=== PATIENT | male | born 1945 | race Caucasian/White ===

== ENCOUNTER 2017-05-16 13:13 | Inpatient (IN) ==
[2017-05-16] MEDS ORDERED: 0.9 % Sodium Chloride 1,000 ML IVC ONE ×3 (13:32→16:38)
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
[2017-05-16 14:00] LABS: Basophils % 0.1 %; Eosinophils % 0.1 %; Hematocrit 42.1 % (37.5-50.1); Hemoglobin 14.7 g/dL (12.9-16.9); Immature Granulocytes % 0.3 % (0-4); Lymphocytes # 0.6 K/mcL (0.6-4.6); Lymphocytes % 5.2 %; Mean Corpuscular HGB Conc 34.9 g/dL (31.6-35.5); Mean Corpuscular Hemoglobin 33.6 pg (28.0-33.3); Mean Corpuscular Volume 96.1 fL (83.0-100.0); Mean Platelet Volume 9.5 fL (9.4-12.4); Monocytes # 0.6 K/mcL (0.0-1.3); Neutrophils # 9.8 K/mcL (1.6-8.9); Nucleated Red Blood Cells 0.3 /100 WBC (0); Platelet Count 239 K/mcL (140-400); Red Blood Count 4.38 M/mcL (4.19-5.50); Red Cell Distribution Width 13.3 % (11.5-14.5); Segmented Neutrophils % 89.3 %
[2017-05-16 14:14] LABS: Prothrombin Time 21.4 Seconds (9.4-12.1)
[2017-05-16 14:17] LABS: Albumin 3.1 g/dL (3.5-5.0); Albumin/Globulin Ratio 0.9 (1.1-2.2); Bilirubin,Total 0.7 mg/dL (0.2-1.2); Calcium 9.1 mg/dL (8.6-10.8); Globulin 3.4 g/dL (2.4-3.5); Potassium 4.7 mEq/L (3.5-4.5); Total Protein 6.5 g/dL (6.0-8.3)
[2017-05-16] MEDS ORDERED: 0.9 % Sodium Chloride 1,000 ML IVC SCH ×3 (14:30→17:45)
[2017-05-16 14:55] LABS: Platelet Estimate Normal (Normal)
[2017-05-16] MEDS ORDERED: *HR* Nalbuphine 20 MG/ML AMPUL IVP STA (15:06)
[2017-05-16] MEDS ORDERED: Ondansetron 4 MG/2 ML VIAL IVP ONE (15:06)
[2017-05-16] MEDS ORDERED: MetroNIDAZOLE 500 MG/100 ML 500 MG/100 ML BAG IVPB ONE (15:06)
--- NOTE | 2017-05-16 16:29 | Electrocardiograph Report ---
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
[2017-05-16] MEDS ORDERED: *HR* HYDROmorphone (PF) 1 MG/ML SYRINGE IVP PRN (16:38)
[2017-05-16] MEDS ORDERED: Naloxone 0.4 MG/ML INJ IVP PRN (16:38)
[2017-05-16] MEDS ORDERED: Ondansetron 4 MG/2 ML VIAL IVP PRN (16:38)
[2017-05-16] MEDS: 0.9 % Sodium Chloride 1,000 ML IVC SCH (17:12)
[2017-05-16] MEDS ORDERED: Pantoprazole 40 MG in 0.9 % Sodium Chloride Mini Bag 100 ML IVPB ONE (23:54)
[2017-05-17] MEDS ORDERED: Pantoprazole 40 MG VIAL IVP ONE (00:02)
[2017-05-17] MEDS: *HR* HYDROmorphone (PF) 1 MG/ML SYRINGE IVP PRN ×3 (00:17→18:59)
[2017-05-17 06:09] LABS: Basophils % 0.3 %; Eosinophils % 0.1 %; Hemoglobin 12.5 g/dL (12.9-16.9); Immature Granulocytes % 0.3 % (0-4); Lymphocytes # 0.5 K/mcL (0.6-4.6); Mean Corpuscular HGB Conc 34.7 g/dL (31.6-35.5); Mean Corpuscular Hemoglobin 33.1 pg (28.0-33.3); Mean Corpuscular Volume 95.2 fL (83.0-100.0); Mean Platelet Volume 9.3 fL (9.4-12.4); Monocytes # 0.7 K/mcL (0.0-1.3); Monocytes % 9.2 %; Neutrophils # 5.8 K/mcL (1.6-8.9); Platelet Count 185 K/mcL (140-400); Red Blood Count 3.78 M/mcL (4.19-5.50); Red Cell Distribution Width 13.6 % (11.5-14.5); Segmented Neutrophils % 83.1 %
[2017-05-17 06:18] LABS: INR 1.8; Prothrombin Time 19.8 Seconds (9.4-12.1)
[2017-05-17 06:20] LABS: Activated Partial Thrombo Time 45.1 Seconds (26.0-36.0)
[2017-05-17 06:35] LABS: Calcium 8.3 mg/dL (8.6-10.8); Potassium 4.2 mEq/L (3.5-4.5)
[2017-05-17 06:57] LABS: Platelet Estimate Normal (Normal)
[2017-05-17] MEDS: Pantoprazole 40 MG VIAL IVP SCH (10:59)
[2017-05-17] MEDS ORDERED: Ondansetron 4 MG/2 ML VIAL IVP PRN (11:46)
--- NOTE | 2017-05-17 11:50 | Internal Med History&Physical ---
Date of Encounter: 05/17/17 Time of Encounter: 11:20 Assessment and Plan (1) Upper GI bleed Current visit: Yes Status: Acute NG tube to suction has been inserted. IV PPI has been ordered. Will hold aspirin and Pradaxa for now. (2) Anemia Current visit: Yes Status: Acute Hemoglobin was 12.5 on 04/23/2015. Suspect normal hemoglobin in ER was due to hemoconcentration. We will order anemia testing in a.m. Qualifiers: Anemia type: unspecified type Qualified Code(s): D64.9 - Anemia, unspecified (3) Azotemia Current visit: Yes Status: Acute Appears acute on chronic. Creatinine was 1.58 on 04/23/2015. We will withhold Lasix and lisinopril and give IV fluids. Recheck labs in a.m. (4) Atrial fibrillation Current visit: Yes Status: Chronic He is in normal sinus rhythm at present. Will hold aspirin and Pradaxa because of GI bleeding. Will restart metoprolol when more stable medically. Qualifiers: Atrial fibrillation type: paroxysmal Qualified Code(s): I48.0 - Paroxysmal atrial fibrillation (5) Hypertension Current visit: Yes Status: Chronic We will hold home blood pressure medications for now because of borderline hypotension and bleeding. Qualifiers: Hypertension type: essential hypertension Qualified Code(s): I10 - Essential (primary) hypertension (6) DM type 2 (diabetes mellitus, type 2) Current visit: Yes Status: Chronic We will check hemoglobin A1c in a.m. Qualifiers: Diabetes mellitus complication status: with kidney complications Diabetes mellitus complication detail: with chronic kidney disease Diabetes mellitus assisted insulin use: without inspector canned food reconditioning use Chronic kidney disease stage: stage 3 (moderate) Qualified Code(s): E11.22 - Type 2 diabetes mellitus with diabetic chronic kidney disease; N18.3 - Chronic kidney disease, stage 3 ( moderate) (7) Colitis Current visit: Yes Status: Acute Continue IV Flagyl and Cipro started in emergency room. Internal Medicine - H&P: HPI Chief complaint: Vomiting, diarrhea, abdominal pain Admitted From: Home Plans for Post Hospital Care: Home History of present illness: Mr. Escobedo is a 71 year old male who came to emergency room stating he had onset of vomiting and diarrhea with occasional visible melena and hematochezia approximately 6 weeks ago. Denies visible hematemesis. He had abdominal pain that was intermittent but seemed to worsen over the last 2 weeks. He came to emergency room and was evaluated. CT scan showed mild pericolic induration. Lab work showed significant azotemia. He was admitted to [facility] floor for ongoing care needs. He denies previous episodes of colitis. He has had cholecystectomy but denies disorders of his liver or exocrine pancreas. Testing for C. difficile was negative in the emergency room. He takes aspirin and Pradaxa for diagnoses of atrial fibrillation. He denies any other OTC NSAID use. He has not had previously diagnosed peptic ulcer disease. Past Med Surg Social Fam HX - Past Medical History Medical history: hypertension, myocardial infarction, other Psychiatric history: PTSD - Past Surgical History Surgical History: cholecystectomy - Social History Smoking Status: Never smoker Smokeless Tobacco Status: No Alcohol use: occasionally Drug use: none Internal Medicine - H&P: Meds Acetaminophen [Pain Reliever] 500 mg PO Q6H 05/17/17 [History] Albuterol Sulfate [Albuterol Inhaler] 2 puff IH Q6HR 05/17/17 [History] Amoxicillin/Clavulanate [Augmentin] 875 mg PO BIDWM 05/17/17 [History] Aspirin [Lo-Dose Aspirin EC] 81 mg PO 05/17/17 [History] Biotene Oralbalance 1 spray PO 5XD 05/17/17 [History] Cetirizine HCl [Zyrtec] 10 mg PO 05/17/17 [History] Clotrimazole [Mycelex Nina] 10 mg MM 5XD 05/17/17 [History] Cyclobenzaprine 05/17/17 [History] Cyclobenzaprine HCl 10 mg PO 05/17/17 [History] Dabigatran Etexilate Mesylate [Pradaxa] 150 mg PO BID 05/17/17 [History] Doxycycline Monohydrate [Mondoxyne Nl] 100 mg PO BID 05/17/17 [History] Furosemide [Lasix] 40 mg PO DAILY 05/17/17 [History] Gabapentin [Neurontin] 600 mg PO TID 05/17/17 [History] Guaifenesin [Child Mucinex Chest Congestion] 100 mg PO 05/17/17 [History] HydrOXYzine Pamoate [Vistaril] 50 mg PO 05/17/17 [History] Hydrophilic Cream [Basle] 05/17/17 [History] Ipratropium/Albuterol Neb [Duoneb] 3 ml IH Q4HR 05/17/17 [History] Ketoconazole Shampoo 05/17/17 [History] Lamotrigine [Lamictal (Blue)] 25 mg PO QID 05/17/17 [History] Lansoprazole [Prevacid] 15 mg PO BIDAC 05/17/17 [History] Levothyroxine Sodium 112 mcg PO QAM 05/17/17 [History] Lisinopril [Zestril] 05/17/17 [History] Meclizine HCl [Bonine] 25 mg PO BID 05/17/17 [History] MethylPREDNISolone [MethylPREDNISolone Dose Pack] 4 mg PO 05/17/17 [History] Metoprolol [Lopressor] 50 mg PO BID 05/17/17 [History] Mirtazapine [Remeron] 30 mg PO HS 05/17/17 [History] Polyvinyl Alcohol [Artificial Tears] 05/17/17 [History] Sildenafil Citrate [Viagra] 100 mg PO 05/17/17 [History] Simvastatin [Zocor] 20 mg PO HS 05/17/17 [History] Tramadol HCl [Ultram] 50 mg PO QID PRN 05/17/17 [History] Allergies No Known Allergies Allergy (Verified 05/16/17 13:14) All Systems PM: A 10-system review of systems was performed and is negative for pertinent findings except as documented above in the HPI. Review of systems: Gen.: He states his weight has increased approximately 30 pounds in the past 6 weeks, unintentional Cardiovascular: He has history of hypertension and claims a diagnosis of heart failure although BNP peptide was normal at 47 in emergency room. He has a diagnosis of atrial fibrillation that is apparently paroxysmal since he had sinus tachycardia in emergency room. He denies NC DVT or pulmonary embolus. He claims he had mitral valve repair surgeries in 2009 and 2010. Respiratory: He is a lifelong nonsmoker and denies chronic lung disease GI: As per history of present illness : He states he was recently diagnosed with CKD but does not know details. He denies other kidney bladder or prostate disorders. Neurologic: He denies large distribution strokes or seizures Endocrine: He states he has been told he has prediabetes. He has hyperlipidemia and hypothyroidism Hematology/oncology: He was diagnosed with prostate CA in 2010 and treated with XRT. He states he is cancer free at this time. He has a diagnosis of anemia Psychiatric: He has anxiety, depression, and PTSD Musk skeletal: He has DJD but denies gout or other bone joint or muscle disorders. - Constitutional Vitals: Temp Pulse Resp BP Pulse Ox 97.7 F 101 20 117/68 95 05/17/17 10:47 05/17/17 10:47 05/17/17 10:47 05/17/17 10:47 05/17/17 10:47 Exam: Gen.: He is a well-developed well-nourished male lying in bed who appears in mild to moderate pain at times HEENT: Head is atraumatic and normocephalic. Eyes: EOMI. There is no scleral icterus. Nose: A NG tube is in place attached to wall suction. Mouth: Mucosa is moist Neck: Supple and nontender. There is no thyromegaly or adenopathy noted. Heart: Regular without murmurs gallops or ectopics Lungs: No wheezes or crackles are heard. Abdomen: Bowel sounds are not heard. There is mild diffuse tenderness. There is no guarding. Extremities: There is no cyanosis edema or clubbing noted. Dorsalis pedis and posterior tibial pulses are 1-2/2 bilaterally. Neurologic: Mental status: He is talkative and a good historian. Cranial nerves : Smile is symmetric. Forehead wrinkles bilaterally. Tongue protrudes midline. EOMI. Motor: There is no pronator drift. Cerebellar: Finger to nose is intact bilaterally. Skin: Warm and dry Internal Med - H&P Results - Labs CBC & Chem 7: 05/17/17 06:02 05/17/17 06:02 Labs: Short CBC 05/17/17 Range/Units 06:02 WBC 7.0 (4.3-11.1) K/mcL Hgb 12.5 L D (12.9-16.9) g/dL Hct 36.0 L (37.5-50.1) % Plt Count 185 (140-400) K/mcL Neutrophils # 5.8 (1.6-8.9) K/mcL BMP 05/17/17 06:02 Sodium 135 L Potassium 4.2 Chloride 101 Carbon Dioxide 23 BUN 34 H Creatinine 2.08 H Glucose 182 H Calcium 8.3 L - Impressions ITS Impressions Chest X-Ray 05/16/17 22:23 IMPRESSION: NG tube is not well seen beyond the level of the mid to distal esophagus. Recommend repositioning. D/ / 05/16/2017 23:06:21 Brando Roth MD / ying Interpreting Provider: Brando Roth MD
[2017-05-17] MEDS: MetroNIDAZOLE 500 MG/100 ML 500 MG/100 ML BAG IVPB SCH (18:47)
[2017-05-18] MEDS: MetroNIDAZOLE 500 MG/100 ML 500 MG/100 ML BAG IVPB SCH ×3 (00:38→16:54)
[2017-05-18 06:24] LABS: Hematocrit 29.8 % (37.5-50.1); Hemoglobin 10.5 g/dL (12.9-16.9); Mean Corpuscular HGB Conc 35.2 g/dL (31.6-35.5); Mean Corpuscular Hemoglobin 33.4 pg (28.0-33.3); Mean Corpuscular Volume 94.9 fL (83.0-100.0); Mean Platelet Volume 9.5 fL (9.4-12.4); Platelet Count 129 K/mcL (140-400); Red Blood Count 3.14 M/mcL (4.19-5.50); Red Cell Distribution Width 13.5 % (11.5-14.5)
[2017-05-18 06:40] LABS: BUN/Creatinine Ratio 22 (6-26); Blood Urea Nitrogen 25 mg/dL (8-26); Calcium 8.2 mg/dL (8.6-10.8); Carbon Dioxide 25 mEq/L (19-29); Chloride 102 mEq/L (98-109); Glucose 158 mg/dL (70-99); Magnesium 1.2 mg/dL (1.6-2.6); Osmolality,Calculated 288 (280-300); Sodium 135 mEq/L (136-145); eGFR For African Americans > 60 (> 60); eGFR For Non-African Americans > 60 (> 60)
[2017-05-18] MEDS: Pantoprazole 40 MG VIAL IVP SCH (09:26)
--- NOTE | 2017-05-18 09:57 | Internal Med Progress Note ---
Date of Encounter: 05/18/17 Time of Encounter: 09:45 - Assessment and plan (1) Upper GI bleed Current Visit: Yes Status: Acute Assessment and plan: May 18. Continue IV PPI and hold aspirin and Pradaxa. (2) Anemia Current Visit: Yes Status: Acute Assessment and plan: May 18. Hemoglobin has decreased to 10.5 with IV fluids. We will decrease rate. Anemia testing is pending. Qualifiers: Anemia type: unspecified type Qualified Code(s): D64.9 - Anemia, unspecified (3) Azotemia Current Visit: Yes Status: Acute Assessment and plan: May 18. Resolved. Creatinine is 1.16 today with estimated GFR greater than 60. We will decrease IV rate. (4) Atrial fibrillation Current Visit: Yes Status: Chronic Assessment and plan: May 18. We will restart metoprolol but hold aspirin and Pradaxa Qualifiers: Atrial fibrillation type: paroxysmal Qualified Code(s): I48.0 - Paroxysmal atrial fibrillation (5) Hypertension Current Visit: Yes Status: Chronic Assessment and plan: May 18. We will restart metoprolol Qualifiers: Hypertension type: essential hypertension Qualified Code(s): I10 - Essential (primary) hypertension (6) DM type 2 (diabetes mellitus, type 2) Current Visit: Yes Status: Chronic Assessment and plan: May 18. Hemoglobin A1c was 6.0%. Qualifiers: Diabetes mellitus complication status: with kidney complications Diabetes mellitus complication detail: with chronic kidney disease Diabetes mellitus long-term insulin use: without long-term use Chronic kidney disease stage: stage 3 (moderate) Qualified Code(s): E11.22 - Type 2 diabetes mellitus with diabetic chronic kidney disease; N18.3 - Chronic kidney disease, stage 3 ( moderate) (7) Colitis Current Visit: Yes Status: Acute Assessment and plan: May 18. Continue IV Cipro and Flagyl (8) Hypomagnesemia Current Visit: Yes Status: Acute Assessment and plan: May 18. Will give 1 g magnesium sulfate IV. - Subjective Interval history: May 18. He has no new complaints and feels better. The NG tube was removed last evening and he has had no further vomiting. - Constitutional Vitals: Temp Pulse Resp BP Pulse Ox 98.0 F 95 18 146/78 97 05/18/17 07:19 05/18/17 07:19 05/18/17 07:19 05/18/17 07:19 05/18/17 07:19 Exam: He is resting comfortably in bed. Abdomen is still slightly tender to palpation. Bowel sounds are still essentially absent. Heart is regular without murmurs gallops or ectopics. Lungs are clear anteriorly. I reviewed his medications and lab results. Internal Medicine: Result - Labs CBC & Chem 7: 05/18/17 05:41 05/18/17 05:41 Labs: Short CBC 05/18/17 Range/Units 05:41 WBC 3.9 L (4.3-11.1) K/mcL Hgb 10.5 L D (12.9-16.9) g/dL Hct 29.8 L (37.5-50.1) % Plt Count 129 L (140-400) K/mcL BMP 05/18/17 05:41 Sodium 135 L Potassium 4.0 Chloride 102 Carbon Dioxide 25 BUN 25 Creatinine 1.16 Glucose 158 H Calcium 8.2 L - ABG Interpretation ABG results: PT/INR, D-dimer PT 19.8 Seconds (9.4-12.1) H 05/17/17 06:02 Consult Discharge Plan - Plan [facility]errals[facility] Care Provider[facility] - 1 week
[2017-05-18] MEDS ORDERED: Magnesium Sulfate 1 GM in D5% in Water 100 ML IVPB ONE (09:59)
[2017-05-18 10:48] LABS: Lymphocytes # 0.4 K/mcL (0.6-4.6); Neutrophils # 3.4 K/mcL (1.6-8.9)
[2017-05-18 10:50] LABS: Basophilic Stippling 1+ (Not Present); Dohle Bodies Present (Not Present); Hypochromasia Present (Not Present); Polychromasia 1+ (Not Present); Toxic Granulation Present (Not Present)
[2017-05-18 11:05] LABS: % Iron Saturation 11 % (20-55); Iron 20 mcg/dL (65-175); Transferrin 131 mg/dL (174-364)
[2017-05-18 11:35] LABS: Ferritin 319 ng/ml (22-275)
[2017-05-18 11:42] LABS: Folate 7.5 ng/mL (7.0-31.4)
--- NOTE | 2017-05-18 17:37 | Discharge Summary ---
Date of Encounter: 05/18/17 Time of Encounter: 09:50 - Discharge Diagnosis (1) Upper GI bleed Priority: Primary Status: Acute (2) Anemia Priority: Secondary Status: Acute Qualifiers: Anemia type: unspecified type Qualified Code(s): D64.9 - Anemia, unspecified (3) Azotemia Priority: Secondary Status: Acute (4) Atrial fibrillation Priority: Secondary Status: Chronic Qualifiers: Atrial fibrillation type: paroxysmal Qualified Code(s): I48.0 - Paroxysmal atrial fibrillation (5) Hypertension Priority: Secondary Status: Chronic Qualifiers: Hypertension type: essential hypertension Qualified Code(s): I10 - Essential (primary) hypertension (6) DM type 2 (diabetes mellitus, type 2) Priority: Secondary Status: Chronic Qualifiers: Diabetes mellitus complication status: with kidney complications Diabetes mellitus complication detail: with chronic kidney disease Diabetes mellitus group home insulin use: without terminal supervisor use Chronic kidney disease stage: stage 3 (moderate) Qualified Code(s): E11.22 - Type 2 diabetes mellitus with diabetic chronic kidney disease; N18.3 - Chronic kidney disease, stage 3 ( moderate) (7) Colitis Priority: Secondary Status: Acute (8) Hypomagnesemia Priority: Secondary Status: Acute - Discharge Medications Home Medications: Acetaminophen [Pain Reliever] 500 mg PO Q6H 05/17/17 [History] Biotene Oralbalance 1 spray PO 5XD 05/17/17 [History] Cyclobenzaprine 05/17/17 [History] Gabapentin [Neurontin] 600 mg PO TID 05/17/17 [History] Ketoconazole Shampoo 05/17/17 [History] Lamotrigine [Lamictal (Blue)] 25 mg PO QID 05/17/17 [History] Levothyroxine Sodium 112 mcg PO QAM 05/17/17 [History] Meclizine HCl [Bonine] 25 mg PO BID 05/17/17 [History] Metoprolol [Lopressor] 50 mg PO BID 05/17/17 [History] Mirtazapine [Remeron] 30 mg PO HS 05/17/17 [History] Polyvinyl Alcohol [Artificial Tears] 05/17/17 [History] Simvastatin [Zocor] 20 mg PO HS 05/17/17 [History] Tramadol HCl [Ultram] 50 mg PO QID PRN 05/17/17 [History] 0.45 % Sodium Chloride [0.45% Sodium Chloride 1000 Ml 1000 Ml] 1,000 ml IVC .[id number] #0 ivbag 05/18/17 [Rx] Albuterol Sulfate [Albuterol Inhaler] 2 puff IH Q6HR PRN #0 05/18/17 [Rx] HYDROmorphone (PF) [Dilaudid] 1 mg IVP Q4HR PRN #0 syringe 05/18/17 [Rx] Allergies/Adverse Reactions: Allergies No Known Allergies Allergy (Verified 05/16/17 13:14) Date of admission: 05/17/17 12:07 Primary care physician: PCP [facility] - Patient Status Disposition: Transfer Other Condition: Good Functional capacity at discharge: bed bound - Discharge Instructions Hospital course: Mr. Escobedo is a 71 year old male who came to emergency room stating he had onset of vomiting and diarrhea with occasional visible melena and hematochezia approximately 6 weeks ago. Denies visible hematemesis. He had abdominal pain that was intermittent but seemed to worsen over the last 2 weeks. He came to emergency room and was evaluated. CT scan showed mild pericolic induration. Lab work showed significant azotemia. He was admitted to [facility] for ongoing care needs. Initial orders were written by the emergency room physician. I saw him on May 17 and performed the history and physical. An NG tube was inserted for decompression. He had no further vomiting after the insertion of the tube. The drainage was consistent with dried blood. His aspirin and Pradaxa were held on admission. He was ordered IV PPI. Hemoglobin decreased to 10.5 on May 18. He remained hemodynamically stable. Contact was made with [facility] and he was accepted for transfer to [facility] for further evaluation including likely EGD. IV fluids were given and Lasix and lisinopril were held. His azotemia resolved with BUN and creatinine being 25 and 1.16 respectively on the day of transfer with estimated GFR greater than 60. His magnesium level returned low at 1.2 in May 18. He was given 1 g of magnesium sulfate IV. On the late afternoon of May 18 he was accepted and transferred to [facility] for ongoing care needs. - Time Spent with Patient Total time spent providing and/or coordinating discharge services: - Constitutional Vitals: Temp Pulse Resp BP Pulse Ox 98.4 F 94 18 181/79 95 05/18/17 10:50 05/18/17 10:50 05/18/17 10:50 05/18/17 10:50 05/18/17 10:50
[2017-05-18 18:58] VITALS: BP 146/86
== END 2017-05-18 21:45 | DRG 378 ==
LOC: INPPIK 13:13 → EMEROOPIK 13:13 → INPPIK 16:37
PROVIDERS: ADMIT Internal Medicine; ATTEND Internal Medicine